=== PATIENT | male | born 1965 | race Caucasian/White ===

== ENCOUNTER → 2017-04-25 | Outpatient (CLI) | payer BC ==
--- NOTE | 2017-04-25 23:35 | MR ---
EXAMINATION TYPE: MR shoulder RT wo con DATE OF EXAM: 04/25/2017 COMPARISON: NONE HISTORY: Right shoulder pain for 10 years, gotten worse TECHNIQUE: Multiplanar, multisequence imaging of the right shoulder is performed without contrast. FINDINGS: There is a small amount of fluid around the biceps tendon. Biceps tendon is intact. Subscapularis ten don is intact. Glenoid jordan appear normal. There is mild spurring at the AC joint. There is no subac romial impingement. I see no fracture nor dislocation. The supraspinatus tendon appears intact. IMPRESSION: Minimal joint fluid consistent with synovitis. No evidence of rotator cuff tear. Hypertrophic osteoar thritis at the AC joint without significant subacromial impingement.
== END | disposition home or self-care (01) ==
LOC: RADMRIMAIN 20:53
PROVIDERS: ATTEND Orthopaedic Surgery
DX: M19.011 Primary osteoarthritis, right shoulder (principal)

== ENCOUNTER → 2017-07-12 | Outpatient (CLI) | payer BC ==
[2017-07-12 09:11] LABS: EKG EKG PERFORMED
[2017-07-12 09:29] LABS: Basophils # (A) 0.1 k/uL (0-0.2); Basophils % (A) 1 %; CH 32.3; CHCM 34.6; Eosinophils # (A) 0.3 k/uL (0-0.7); Eosinophils % (A) 2 %; HCT 49.2 % (39.0-53.0); HDW 2.57; HGB 16.4 gm/dL (13.0-17.5); Luc # (Auto) 0.25; Luc % (Auto) 2; Lymphocytes # (A) 2.6 k/uL (1.0-4.8); Lymphocytes % (A) 20 %; MCH 31.3 pg (25.0-35.0); MCHC 33.3 g/dL (31.0-37.0); MCV 94.1 fL (80.0-100.0); Mean Platelet Volume 7.5; Monocytes # (A) 0.8 k/uL (0-1.0); Monocytes % (A) 6 %; Neutrophils # (A) 8.9 k/uL (1.3-7.7); Neutrophils % (A) 69 %; RBC 5.23 m/uL (4.30-5.90); RDW 14.2 % (11.5-15.5); WBC 12.9 k/uL (3.8-10.6); WBC (Perox) 13.29
[2017-07-12 09:50] LABS: Anion Gap 10 mmol/L; Carbon Dioxide 26 mmol/L (22-30); Chloride 105 mmol/L (98-107); Potassium 4.2 mmol/L (3.5-5.1); Sodium 141 mmol/L (137-145)
== END | disposition home or self-care (01) ==
LOC: LABPAT 09:03
PROVIDERS: ATTEND Orthopaedic Surgery
DX: Z01.810 Encounter for preprocedural cardiovascular examination (principal); Z01.812 Encounter for preprocedural laboratory examination; M75.41 Impingement syndrome of right shoulder
CPT/HCPCS: 80051; 85025; 93005

== ENCOUNTER 2017-08-01 08:19 | Day surgery (SDC) | payer BC ==
[2017-07-27 15:11] VITALS: BMI 23.7
--- NOTE | 2017-07-31 15:30 | HP ---
HISTORY AND PHYSICAL DATE OF SERVICE: 08/01/2017 Benito Whitman is a 52-year-old patient seen with progressive right shoulder pain. After treatment options discussed, he elected to proceed with right shoulder arthroscopy. Consent was obtained. PAST MEDICAL HISTORY: Noncontributory. PAST SURGICAL HISTORY: Noncontributory. DAILY MEDICATIONS: Ibuprofen as needed. ALLERGIES: None reported. SOCIAL HISTORY: Patient currently smokes cigarettes. PHYSICAL EVALUATION OF THE RIGHT SHOULDER: Flexion is 150 degrees, abduction is 140 degrees, external rotation is 50 degrees with pain and weakness. There is tenderness on the anterolateral acromion and rotator cuff insertion site. Impingement positive at 90 degrees. Cross adduction sign is positive. Distal neurovascular exam is intact. RIGHT SHOULDER RADIOGRAPHS: Reveal a type 2 anterior acromion, cystic changes of the tuberosity. An MRI of the right shoulder revealed acromioclavicular joint osteoarthritis. IMPRESSION: Right shoulder impingement with possible rotator cuff tear and acromioclavicular joint osteoarthritis. PLAN: Right shoulder arthroscopy with subacromial decompression, possible arthroscopic rotator cuff repair. Probable Keya procedure, possible biceps tenotomy and debridement. MMODL / IJN: [id number] /
[~2017-08-01 08:19] MED LIST: DEXAMETHASONE SOD PHOSPHATE 10 MG/ML 1 ML VIAL IV ONE; HYDROmorphone 0.5 MG/0.5 ML SYRINGE IVP PRN; LACTATED RINGERS 1,000 ML IV SCH; LIDOCAINE 1% 20 ML VIAL (10MG/ML) FOR IV START INTRADERMA PRN; MIDAZOLAM 2 MG/2 ML VIAL IV PRN; ONDANSETRON 4 MG/2 ML VIAL IVP ONE; SCOPOLAMINE 1.5MG/72HR PATCH TRANSDERM ONE; ceFAZolin 2 GM in SODIUM CHLORIDE 0.9% 100 ML IVPB ONE; fentaNYL (PF) 50 MCG/ML 2 ML AMP IVP PRN
[2017-08-01] MEDS ORDERED: ROCURONIUM BROMIDE 10 MG/ML 10 ML VIAL IV ONE (10:18)
[2017-08-01] MEDS ORDERED: MIDAZOLAM 2 MG/2 ML VIAL ONE (10:18)
[2017-08-01] MEDS ORDERED: PROPOFOL 10 MG/ML 20 ML VIAL IV ONE (10:18)
[2017-08-01] MEDS ORDERED: SUCCINYLCHOLINE CHLORIDE 100 MG/5 ML SYR IV ONE (10:18)
[2017-08-01] MEDS ORDERED: LIDOCAINE 2%-EPI 1:100,000 20 ML VIAL ONE (10:18)
[2017-08-01] MEDS ORDERED: HYDROmorphone (PF) 1 MG/ML ONE (10:18)
[2017-08-01] MEDS ORDERED: NEOSTIGMINE 1 MG/ML 10 ML VIAL ONE (10:18)
[2017-08-01] MEDS ORDERED: ROPIVACAINE 5 MG/ML 30 ML VIAL ONE (10:18)
[2017-08-01] MEDS ORDERED: GLYCOPYRROLATE 0.2 MG/ML 2 ML VIAL ONE (10:18)
[2017-08-01] MEDS ORDERED: LACTATED RINGERS 1,000 ML IV ONE (11:14)
[2017-08-01 12:18] VITALS: TEMP 97.2
--- NOTE | 2017-08-01 12:19 | P.OP ---
Date of Procedure: 08/01/17 Preoperative Diagnosis: Right shoulder impingement Postoperative Diagnosis: 1. Right shoulder rotator cuff tear 2. Right shoulder impingement 3. Right shoulder acromioclavicular joint osteoarthritis 4. Right shoulder partial long head biceps tendon tear 5. Right shoulder superficial superior labral tear 6. Right shoulder glenoid fossa osteochondral tear Procedure(s) Performed: 1. Right shoulder arthroscopic rotator cuff repair 2. Right shoulder arthroscopic subacromial decompression 3. Right shoulder arthroscopic Keya procedure 4. Right shoulder arthroscopic biceps tenotomy 5. Right shoulder arthroscopic debridement labral tear 6. Right shoulder arthroscopic chondroplasty glenoid fossa Implants: None Anesthesia: GETA, regional (Interscalene block) Surgeon: Satnam Schaeffer Steam Pressure Chamber Operator #1: Rafael Buchanan Estimated Blood Loss (ml): 10 Pathology: none sent Condition: stable Disposition: PACU Indications for Procedure: 52-year-old patient seen with progressive right shoulder pain. After treatment options were discussed, he elected to proceed with arthroscopy. Operative Findings: See description of procedure Description of Procedure: Patient underwent a shoulder block by department of anesthesia. The patient was then taken to the operative suite. The patient underwent a general anesthetic by the department of anesthesia. The patient was placed into a lateral position and secured. There was appropriate padding of the bony prominence. Right shoulder was then prepped and draped in normal sterile orthopedic fashion. We placed the extremity in 10 pounds of longitudinal traction. A posterior incision was now made for a posterior working portal site. The trocar and cannula were inserted into the glenohumeral joint. Arthroscopy was initiated. Spinal needle was now inserted anteriorly, to ascertain the anterior working portal site. An incision was now made in that area, a trocar was inserted followed by a probe. There was superficial tearing of the superior labrum. Partial tearing and hyperemia long head biceps tendon. The posterior and inferior labrum appeared intact. There was an area in the inferior portion of the glenoid fossa with an osteochondral tear present. There were some diffuse grade 1-2, she changes around that osteochondral tear. The humeral head was stable with early grade 1 chondromalacia. At this point performed a chondroplasty of the glenoid fossa getting down to stable osteochondral tissue. I debrided the superior labral tear down to stable tissue. I performed an arthroscopic biceps tenotomy. The residual labrum was probed and found to be stable. The residual osteochondral surface along that osteochondral tear was stable there was a area of full-thickness defect of the glenoid fossa that measured about 5 mm x 5 mm. At this point instruments removed from the glenohumeral joint. Utilizing the posterior working portal site, the trocar and cannula were inserted into the subacromial space. Arthroscopy initiated. I made an incision 2 fingerbreadths lateral to the acromion. I introduced my trocar followed by my ArthroCare ablator. I now began ablating thick subacromial bursal tissue, which exposed the undersurface of the anterior acromion. This was diminished subacromial space. There was a very prominent anterior acromion. A motorized bur was introduced and a subacromial decompression was performed. I also excised some osteophytes off the inferior aspect of the distal clavicle. The AC joint was visualized and noted to be fairly arthritic. Our motorized bur was introduced in the anterior portal site and a Keya procedure was performed without difficulty, decompressing the AC joint nicely. I turned my attention to the rotator cuff. There appeared to be an area of redundant rotator cuff tendon tissue along the midportion of the supraspinatus. Upon further probing there was an intrasubstance tear there. I debrided the margins with a motorized shaver. The tear measured approximately 1.5 cm. I repaired the intrasubstance tear with 2 simple interrupted sutures which approximated the tear nicely. The suture limbs were clipped. The repair was probed and found to be stable. I injected 1 mL Allogen intra-articular. Instruments now removed from the portal sites. All portal sites were approximated with nylon suture. Sterile dressings were applied followed by a shoulder immobilizer. Devon OCONNOR assisted with the procedure. The patient was awakened, transferred to a bed, and taken to recovery in stable condition.
[2017-08-01 12:38] VITALS: RESP 18
--- NOTE | 2017-08-01 13:08 | P.ONQ ---
Anesthesiology Proc Note - PNB - Peripheral Nerve Block Performed Right Interscalene Single Time Out Performed: Yes Procedure Start Time: :10 Procedure Stop Time: :15 Indication: Acute Post-Operative Pain, Requested by physician Sedation Type: Sedate with meaningful contact maintained Preparation: Sterile Prep Position: Supine Needle Size: 50mm (2") Needle Gauge: 21 Technique: Ultrasound Injectate: 0.5% Ropivacaine (see comment for volume) (Ropivacaine 0.5% 15ml + Lidocaine 2% with epi 15 ml) Blood Aspirated: No Pain Paresthesia on Injection Noted: No Resistance on Injection: Normal Events: Uneventful and Well Tolerated
[2017-08-01 13:12] VITALS: BP 134/79; PULSE 76
== END 2017-08-01 14:03 | disposition home or self-care (01) ==
LOC: OR 08:19
PROVIDERS: ATTEND Orthopaedic Surgery
DX: M75.101 Unspecified rotator cuff tear or rupture of right shoulder, not specified as traumatic (principal); M75.41 Impingement syndrome of right shoulder; M25.711 Osteophyte, right shoulder; M94.211 Chondromalacia, right shoulder; M19.011 Primary osteoarthritis, right shoulder; S46.111A Strain of muscle, fascia and tendon of long head of biceps, right arm, initial encounter; S43.491A Other sprain of right shoulder joint, initial encounter; X58.XXXA Exposure to other specified factors, initial encounter; F17.210 Nicotine dependence, cigarettes, uncomplicated
CPT/HCPCS: 29826; 29827; 29824; 64415; C1765; J2250; J1100; J2710; J0690; J2405; J3010; J1170; J2795; J0330; J2704

== ENCOUNTER → 2018-06-26 | Outpatient (CLI) | payer BC ==
--- NOTE | 2018-06-26 22:32 | MR ---
EXAMINATION TYPE: MR lumbar spine wo con DATE OF EXAM: 06/26/2018 COMPARISON: None HISTORY: Low back pain TECHNIQUE: Multiplanar, multisequence images of the lumbar spine were acquired. L1-L2: Normal disc appearance without desiccation. No herniation, protrusion or disc bulging. No ca nal stenosis is present. Foramina are patent bilaterally. L2-L3: Normal disc appearance without desiccation. No herniation, protrusion or disc bulging. No ca nal stenosis is present. Foramina are patent bilaterally. L3-L4: Posterior broad-based disc bulge causes mild anterior mass effect on the thecal sac. L4-L5: Posterior broad-based disc bulge causes mild anterior mass effect on the thecal sac, no signif icant central stenosis. Increased signal at the posterior aspect of this is compatible with annular t ear. Circumferential extension of endplate disc complex results in some foraminal encroachment greate r on the left than on the right. There is facet arthropathy with hypertrophy ligamentum flavum causin g some mass effect posterior laterally on the thecal sac. L5-S1: Posterior extension of endplate disc complex contacts the anterior thecal sac, there is no sig nificant spinal stenosis. Circumferential extension of endplate disc complex results in bilateral for aminal encroachment. There is facet arthropathy. Lumbar segments are intact. No paraspinal masses are identified. Conus medullaris has a normal appe arance. Lumbar vertebral bodies show preserved height and alignment. There is endplate discogenic mar row signal change, spondylosis with associated loss of disc height and signal at L5-S1 greater than L 4-5, vacuum phenomenon present at L5-S1. There is a mild spinal curvature. IMPRESSION: Degenerative disc disease, foraminal encroachment, facet arthropathy. Additional findings above.
== END | disposition home or self-care (01) ==
LOC: RADMRIMAIN 20:32
PROVIDERS: ATTEND Internal Medicine
DX: M51.26 Other intervertebral disc displacement, lumbar region (principal); M51.36 Other intervertebral disc degeneration, lumbar region; M47.816 Spondylosis without myelopathy or radiculopathy, lumbar region; M46.96 Unspecified inflammatory spondylopathy, lumbar region; M43.8X6 Other specified deforming dorsopathies, lumbar region; M24.28 Disorder of ligament, vertebrae
CPT/HCPCS: 72148

== ENCOUNTER 2021-11-24 00:09 | Inpatient (IN) | payer BC, MEDICARE ==
[2021-11-24] MEDS ORDERED: ASPIRIN 81 MG PO STA (00:33)
[2021-11-24] MEDS ORDERED: HEPARIN SODIUM 1,000 UN/ML (10ML VL) IV ONE ×2 (00:33→01:21)
[2021-11-24] MEDS: NITROGLYCERIN SL TABS 0.4 MG TAB SUBLINGUAL PRN ×2 (00:40→00:45)
[2021-11-24 00:41] LABS: Basophils # (A) 0.1 k/uL (0-0.2); Basophils % (A) 1 %; Eosinophils # (A) 0.6 k/uL (0-0.7); Eosinophils % (A) 3 %; HCT 46.9 % (39.0-53.0); HGB 15.9 gm/dL (13.0-17.5); Lymphocytes # (A) 4.1 k/uL (1.0-4.8); Lymphocytes % (A) 22 %; MCH 31.9 pg (25.0-35.0); MCHC 33.9 g/dL (31.0-37.0); Mean Platelet Volume 7.5; Monocytes # (A) 1.1 k/uL (0-1.0); Monocytes % (A) 6 %; Neutrophils # (A) 12.2 k/uL (1.3-7.7); Neutrophils % (A) 66 %; Platelet Count 398 k/uL (150-450); RBC 4.99 m/uL (4.30-5.90); RDW 13.2 % (11.5-15.5); WBC 18.4 k/uL (3.8-10.6)
[2021-11-24] MEDS: HEPARIN SOD,PORK IN 0.45% NACL 25,000 UNIT in 0.45% NACL 1 250ML.BAG IV SCH (00:42)
[2021-11-24] MEDS ORDERED: ATORVASTATIN 80 MG TAB PO STA (00:42)
[2021-11-24 00:53] LABS: ALT 20 U/L (4-49); AST 27 U/L (17-59); African American GFR (CKD) >90 (>60 ml/min/1.73 sqM); Albumin 4.1 g/dL (3.5-5.0); Alkaline Phosphatase 71 U/L (38-126); Anion Gap 9 mmol/L; Blood Urea Nitrogen 11 mg/dL (9-20); Calcium 9.6 mg/dL (8.4-10.2); Carbon Dioxide 24 mmol/L (22-30); Chloride 103 mmol/L (98-107); Glucose 159 mg/dL (74-99); Non-African American GFR(CKD) 83 (>60 ml/min/1.73 sqM); Potassium 3.5 mmol/L (3.5-5.1); Sodium 136 mmol/L (137-145); Total Bilirubin 0.5 mg/dL (0.2-1.3)
[2021-11-24 00:59] LABS: INR 0.9 (<1.2); Prothrombin Time 10.4 sec (9.0-12.0)
--- NOTE | 2021-11-24 01:00 | XR ---
EXAMINATION TYPE: XR chest 1V portable DATE OF EXAM: 11/24/2021 COMPARISON: 08/24/2010 HISTORY: Chest pain TECHNIQUE: FINDINGS: Heart and mediastinum are normal. Lungs are clear of infiltrate. There is no heart failure. There are chest leads. Costophrenic angles are clear. IMPRESSION: No active cardiopulmonary disease. No change.
[2021-11-24] MEDS ORDERED: HEPARIN SODIUM 1,000 UN/ML (10ML VL) ONE (01:08)
[2021-11-24] MEDS ORDERED: VERAPAMIL 2.5 MG/ML 2 ML AMP ONE (01:08)
[2021-11-24] MEDS ORDERED: MIDAZOLAM 2 MG/2 ML VIAL IV ONE (01:16)
[2021-11-24] MEDS ORDERED: IV FLUID CONTINUATION 400 ML IV ONE (01:18)
[2021-11-24] MEDS ORDERED: LIDOCAINE 1% INJ 10MG/ML (20 ML MDV) SQ ONE (01:18)
[2021-11-24] MEDS ORDERED: PRASUGREL 10 MG TAB ONE (01:25)
[2021-11-24] MEDS ORDERED: PRASUGREL 10 MG TAB PO ONE (01:29)
[2021-11-24] MEDS ORDERED: MORPHINE SULFATE 4 MG/ML SYRINGE ONE (01:32)
[2021-11-24] MEDS ORDERED: MORPHINE SULFATE 4 MG/ML SYRINGE IV ONE (01:35)
--- NOTE | 2021-11-24 01:44 | ED ---
Chest Pain HPI - General Chief Complaint: Chest Pain Stated Complaint: Chest Pain Time Seen by Provider: 11/24/21 00:29 Source: patient Mode of arrival: ambulatory Limitations: no limitations - History of Present Illness Initial Comments: This patient's 56-year-old man who presents with complaint of upper chest pain going back approximately one week. He states that he feels to him like indigestion. He presents tonight because she was preparing dinner and passed out. Patient states that he is having some nausea. MD Complaint: chest pain Onset/Timin -: week(s) Onset: during rest Pain Location: left chest Pain Radiation: none Severity: moderate Quality: other (Like indigestion) Consistency: constant Improves With: nothing Worsens With: nothing Other Symptoms: other (Syncope) - Related Data Home Medications Medication Instructions Recorded Confirmed Ibuprofen [Motrin] 400 mg PO Q6HR PRN 07/27/17 07/27/17 Multivit-Min/FA/Lycopen/Lutein 1 each PO DAILY 07/27/17 07/27/17 [Centrum Silver Tablet] Ubidecarenone [Co Q-10] 100 mg PO DAILY 07/27/17 07/27/17 Previous Rx's Medication Instructions Recorded HYDROcodone/APAP 7.5-325MG [[place] 1 each PO Q6HR PRN #20 tab 08/01/17 7.5] Allergies Allergy/AdvReac Type Severity Reaction Status Date / Time No Known Allergies Allergy Verified 11/24/21 00:21 Review of Systems ROS Statement: Those systems with pertinent positive or pertinent negative responses have been documented in the HPI. ROS Other: All systems not noted in ROS Statement are negative. Constitutional: Denies: fever Respiratory: Denies: cough, dyspnea Cardiovascular: Reports: chest pain, syncope. Denies: palpitations, orthopnea, edema Gastrointestinal: Reports: nausea. Denies: abdominal pain, vomiting, diarrhea, melena, hematochezia Genitourinary: Denies: dysuria, hematuria Musculoskeletal: Denies: back pain Skin: Denies: rash Neurological: Denies: headache, weakness, numbness EKG Findings - EKG Results: EKG: sinus rhythm (Rate 69 BPM) - Blocks, [place], Hypertrophy, ST Abn: QRS axis and voltage: left axis deviation (-30 to -90) - AL, Pacemaker, Normal: Myocardial infarction: anterior AL (acute or recent), lateral AL (acute or recent) Past Medical History Past Medical History: Musculoskeletal Disorder Additional Past Medical History / Comment(s): RT SHOULDER IMPINGEMENT, OLD INJURY. History of Any Multi-Drug Resistant Organisms: None Reported Past Surgical History: No Surgical Hx Reported Additional Past Anesthesia/Blood Transfusion Reaction / Comment(s): ONLY LOCALS, NO PROBLEM Past Psychological History: No Psychological Hx Reported Smoking Status: Former smoker Past Alcohol Use History: Occasional Past Drug Use History: None Reported - Past Family History Mother Family Medical History: No Reported History General Exam Limitations: no limitations General appearance: alert, in distress Head exam: Present: atraumatic, normocephalic Eye exam: Present: normal appearance. Absent: scleral icterus, conjunctival injection ENT exam: Present: mucous membranes dry Neck exam: Present: normal inspection, full ROM. Absent: tenderness Respiratory exam: Present: normal lung sounds bilaterally. Absent: respiratory distress, wheezes, rales, rhonchi, stridor Cardiovascular Exam: Present: regular rate, normal rhythm, normal heart sounds. Absent: systolic murmur, diastolic murmur, rubs, gallop GI/Abdominal exam: Present: soft. Absent: distended, tenderness, guarding, rebound, rigid Extremities exam: Present: normal inspection, normal capillary refill. Absent: pedal edema, calf tenderness Back exam: Present: normal inspection Neurological exam: Present: alert Skin exam: Present: warm, intact, diaphoretic, mottled. Absent: rash Course Vital Signs 11/24/21 11/24/21 11/24/21 00:17 00:30 00:39 Temperature 97.1 F L Pulse Rate 76 69 74 Respiratory 22 18 20 Rate Blood Pressure 117/68 114/77 126/82 O2 Sat by Pulse 99 98 99 Oximetry 11/24/21 11/24/21 11/24/21 00:45 00:49 00:56 Temperature Pulse Rate 76 68 70 Respiratory 20 20 22 Rate Blood Pressure 128/81 89/56 68/45 O2 Sat by Pulse 98 98 97 Oximetry 11/24/21 11/24/21 01:00 01:01 Temperature Pulse Rate 70 70 Respiratory 20 18 Rate Blood Pressure 109/67 116/78 O2 Sat by Pulse 98 99 Oximetry Procedures - [place] Protocol (Time Out) Patient Identification (2 identifiers required): Chart, Verbal, Arm Band, Name, Birthdate Patient/Legal Machine Plug Shaper has Confirmed: Identity, Procedure, Consent Site Marked: Not Applicable Chest Pain MDM - MDM This patient is a 56-year-old man presenting with chest pain going back 1 week and syncopal episode tonight. He is registering and when he has another syncopal episode was brought directly to the station room. There EKG is performed which does confirm STEMI and the labor specialist was activated and I discussed case with cardiology. Critical Care Time Critical Care Time: Yes (30 minutes) Disposition Clinical Impression: ST elevation myocardial infarction (STEMI) Disposition: ADMITTED IP TO THIS HOSP Condition: Critical Is patient prescribed a controlled substance at d/c from ED?: No Referrals: Lola Juan MD [Primary Care Provider] - 1-2 days
[2021-11-24] MEDS ORDERED: IOPAMIDOL-370 125ML BTL INJ ONE (01:49)
[2021-11-24] MEDS ORDERED: IOPAMIDOL-370 100ML BTL INJ ONE (01:57)
[2021-11-24] MEDS ORDERED: RX INFO: IV CONTRAST WAS GIVEN 1 EACH MISC MISCELLANE PRN (02:06)
[2021-11-24] MEDS ORDERED: NITROGLYCERIN SL TABS 0.4 MG TAB SUBLINGUAL PRN (02:06)
[2021-11-24] MEDS ORDERED: ATROPINE SULFATE 0.1 MG/ML 10ML SYRINGE IV PRN (02:06)
[2021-11-24] MEDS ORDERED: MAG HYDROX/AL HYDROX/SIMETH 30 ML CUP PO PRN (02:06)
[2021-11-24] MEDS ORDERED: ZOLPIDEM 5 MG TAB PO PRN (02:06)
[2021-11-24] MEDS ORDERED: SODIUM CHLORIDE 0.9% 1,000 ML in EMPTY BAG 1 BAG IV SCH (02:15)
[2021-11-24 02:19] LABS: Glucose,Whole Blood 135 mg/dL (75-99)
--- NOTE | 2021-11-24 02:21 | P.PCN ---
Date of Procedure: 11/24/21 Operative Findings: CARDIAC CATHETERIZATION AND PERCUTANEOUS CORONARY INTERVENTION PERFORMING PHYSICIAN: Andrei Olivier MD, VI PROCEDURE PERFORMED: 1. Selective right and left coronary angiogram 2. Left heart catheterization 3. Successful stenting of the proximal left anterior descending artery using 2.75 x 15 mm Xience IVONE which was postdilated using 3 mm NC balloon with an excellent angiographic results and reduction of stenosis from 100% to 0% 4. Selective right common femoral artery angiogram INDICATION: This is a pleasant 56-year-old gentleman with history of smoking as well as significant family history of coronary artery disease was brought to the emergency department by ambulance for chest discomfort EKG concerning of acute anterior ST patient myocardial infarction. In the light of that an emergent heart catheterization was advised DOOR TO BALLOON: 78 minutes COMPLICATION: Not APPROACH: Right common femoral artery LEVEL OF SEDATION: Moderate with the sedation time off 37 minutes PROCEDURE DESCRIPTION: After obtaining an informed consent, the patient was brought to cardiac slab installer. Local anesthesia was performed using lidocaine subcutaneously. The right common femoral artery was cannulated using Seldinger technique, the guidewire passed easily, following that we advanced a 6 [place] sheath dilator assembly, the wire and dilator were removed and sheath was flushed. Selective left coronary angiogram was performed using JL4 guiding catheter. Selective right coronary angiogram was performed using JR4 diagnostic catheter. Left heart catheterization was performed using the JR4 catheter which cross aortic valve then we did pulled back across the valve. After that we did intervene on the left anterior descending artery The procedure was completed there was no complication. SELECTIVE CORONARY ANGIOGRAM: The right coronary artery: Is a large caliber vessel and on dominant vessel. The proximal and mid RCA has mild disease only. The RCA distally just before the bifurcation into PDA and PLV branches has a plaque appears to be in the range of 80% extends into the PDA branch of the RCA. The PLV has mild to moderate disease only. Left main: Has mild disease only. Bifurcates into left circumflex and left anterior descending artery The left circumflex: Is a large caliber vessel and nondominant dominant vessel. The proximal left circumflex has mild disease only. It gives rises into the first obtuse marginal branch which is a large caliber vessel. It bifurcates into 2 subbranches. The upper subbranch appears to have mild disease only and the lower subbranch appears to have a lesion in the range of 60%. The distal left circumflex is angiographically normal and gives rises into a second OM branch which appears to have mild disease only. The left anterior descending artery: The LAD is occluded in the proximal to midportion. HEMODYNAMICS: The LVEDP was about 20 mmHg without significant gradient across aortic valve PCI OF THE LAD: Anticoagulation was initiated using heparin with continuous ACT monitoring. Subsequently I did engage the left main using JL4 guiding catheter. I did wire the LAD and cross the lesion using a run-through wire. After that balloon james oplasty was performed using 2.5 x 12 mm balloon. The balloon was inflated under 12 bimal for 20 seconds. Subsequently I deployed 2.75 x 15 mm stent where the stent was positioned under fluoroscopy guidance and deployed under 12 bimal. The stent was postdilated using 3 mm NC balloon. The following angiogram showed excellent angiographic results and the procedure was completed without any complication CONCLUSION: 1. Acute anterior ST elevation myocardial infarction 2. 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 I performed successful stenting of the LAD with an excellent angiographic results 3. Intermediate disease involving the left circumflex coronary system 4. Severe disease involving the distal right coronary artery 5. Elevated left-sided filling pressure POSTPROCEDURE MANAGEMENT: #1 dual antiplatelet therapy #2 aggressive cholesterol control #3 obtain an echo to assess ejection fraction #4 follow-up with the patient
--- NOTE | 2021-11-24 02:24 | P.CRDCN ---
History of Present Illness Consult date: 11/24/21 Chief complaint: Chest pain History of present illness: This is a 56-year-old gentleman with history of smoking as well as significant family history of coronary disease presented to the emergency department complaining of chest discomfort. As a matter of fact he was brought by ambulance. The patient has been experiencing intermittent episodes of chest discomfort for about a week. Initially discomfort was only intermittent and only with exertion. He described the discomfort as a burning sensation in the middle of the chest. No associated symptoms. The discomfort was not radiating. Today he developed more intense discomfort in the chest and for that reason he decided to come to the hospital. Ambulance was called. The EKG revealed sinus rhythm with anterior ST patient myocardial infarction. In the light of that an emergent heart catheterization was advised and reviewed acute total occlusion of the proximal left anterior descending artery. I did intervene on the LAD and I placed stent in the proximal LAD with a good angiographic results and without any complication from right groin approach. He was also found to have severe disease involving the distal right coronary artery and also intermediate disease involving the left circumflex coronary artery. The patient also was found to have elevated left-sided filling pressure. He tolerated the procedure very well. He will be admitted to the intensive. For the next 24-48 hours. Will be on dual antiplatelet therapy along with high intensity statin. Past Medical History Past Medical History: Musculoskeletal Disorder Additional Past Medical History / Comment(s): RT SHOULDER IMPINGEMENT, OLD INJURY. History of Any Multi-Drug Resistant Organisms: None Reported Past Surgical History: No Surgical Hx Reported Additional Past Anesthesia/Blood Transfusion Reaction / Comment(s): ONLY LOCALS, NO PROBLEM Past Psychological History: No Psychological Hx Reported Smoking Status: Former smoker Past Alcohol Use History: Occasional Past Drug Use History: None Reported - Past Family History Mother Family Medical History: No Reported History Medications and Allergies Home Medications Medication Instructions Recorded Confirmed Type Ibuprofen [Motrin] 400 mg PO Q6HR PRN 07/27/17 07/27/17 History Multivit-Min/FA/Lycopen/Lutein 1 each PO DAILY 07/27/17 07/27/17 History [Centrum Silver Tablet] Ubidecarenone [Co Q-10] 100 mg PO DAILY 07/27/17 07/27/17 History HYDROcodone/APAP 7.5-325MG [[place] 1 each PO Q6HR PRN #20 tab 08/01/17 Rx 7.5] Allergies Allergy/AdvReac Type Severity Reaction Status Date / Time No Known Allergies Allergy Verified 11/24/21 00:21 Physical Exam Vitals: Vital Signs Temp Pulse Resp BP Pulse Ox 11/24/21 01:01 70 18 116/78 99 11/24/21 01:00 70 20 109/67 98 11/24/21 00:56 70 22 68/45 97 11/24/21 00:49 68 20 89/56 98 11/24/21 00:45 76 20 128/81 98 11/24/21 00:39 74 20 126/82 99 11/24/21 00:30 69 18 114/77 98 11/24/21 00:17 97.1 F L 76 22 117/68 99 Intake and Output 11/23/21 11/23/21 11/24/21 14:59 22:59 06:59 Intake Total 300 Balance 300 Intake: IV 300 Other: Weight 81.647 kg - Constitutional General appearance: no acute distress - Respiratory Respiratory: bilateral: diminished - Cardiovascular Rhythm: regular Heart sounds: normal: S1, S2 Abnormal Heart Sounds: systolic murmur Results 11/24/21 00:30 11/24/21 00:30 Cardiac Enzymes 11/24/21 11/24/21 Range/Units 00:30 00:30 AST 27 (17-59) U/L Troponin I 0.299 H* (0.000-0.034) ng/mL Coagulation 11/24/21 Range/Units 00:30 PT 10.4 (9.0-12.0) sec APTT 23.0 (22.0-30.0) sec CBC 11/24/21 Range/Units 00:30 WBC 18.4 H (3.8-10.6) k/uL RBC 4.99 (4.30-5.90) m/uL Hgb 15.9 (13.0-17.5) gm/dL Hct 46.9 (39.0-53.0) % Plt Count 398 (150-450) k/uL Comprehensive Metabolic Panel 11/24/21 Range/Units 00:30 Sodium 136 L (137-145) mmol/L Potassium 3.5 (3.5-5.1) mmol/L Chloride 103 (98-107) mmol/L Carbon Dioxide 24 (22-30) mmol/L BUN 11 (9-20) mg/dL Creatinine 1.00 (0.66-1.25) mg/dL Glucose 159 H (74-99) mg/dL Calcium 9.6 (8.4-10.2) mg/dL AST 27 (17-59) U/L ALT 20 (4-49) U/L Alkaline Phosphatase 71 (38-126) U/L Total Protein 7.0 (6.3-8.2) g/dL Albumin 4.1 (3.5-5.0) g/dL Current Medications Generic Name Dose Route Start Last Admin Trade Name Freq PRN Reason Stop Dose Admin Al Hydroxide/Mg Hydroxide 30 ml 11/24/21 02:06 Mag Hydrox/Al Hydrox/Simeth 30 Ml Cup PO Q4HR PRN Heartburn Aspirin 81 mg 11/24/21 09:00 Aspirin 81 Mg PO DAILY [facility] Atorvastatin Calcium 80 mg 11/24/21 21:00 Atorvastatin 80 Mg Tab PO HS [facility] Atropine Sulfate 0.5 mg 11/24/21 02:06 Atropine Sulfate 0.1 Mg/Ml 10ml Syringe IV ONCE PRN Symptomatic Bradycardia Heparin Sodium/Sodium Chloride 250 mls @ 9.798 mls/hr 11/24/21 00:45 11/24/21 00:42 25,000 unit/ Sodium Chloride IV 12 units/kg/hr .Q24H [facility] 9.798 mls/hr Administration Protocol 12 UNITS/KG/HR Sodium Chloride 1,000 ml/ IV 1,000 mls @ 75 mls/hr 11/24/21 02:15 Solution IV 11/24/21 07:16 .[id number] [facility] Metoprolol Succinate 12.5 mg 11/24/21 09:00 Metoprolol Succinate (Er) 25 Mg Tab.Er.24h PO DAILY [facility] Miscellaneous Information 1 each 11/24/21 02:06 Rx Info: Iv Contrast Was Given 1 Each Misc MISCELLANE 11/26/21 02:06 DAILY PRN Per Protocol Nitroglycerin 0.4 mg 11/24/21 02:06 Nitroglycerin Sl Tabs 0.4 Mg Tab SUBLINGUAL Q5M PRN Chest Pain Prasugrel 10 mg 11/25/21 09:00 Prasugrel 10 Mg Tab PO DAILY [facility] Protocol Zolpidem Tartrate 5 mg 11/24/21 02:06 Zolpidem 5 Mg Tab PO HS PRN Insomnia Intake and Output 11/23/21 11/23/21 11/24/21 14:59 22:59 06:59 Intake Total 300 Balance 300 Intake: IV 300 Other: Weight 81.647 kg Patient Weight 11/24/21 06:59 Weight 81.647 kg 11/24/21 00:30 11/24/21 00:30 Assessment and Plan Assessment: Assessment #[address] patient myocardial infarction #2 significant history of smoking Plan #1 the patient underwent successful stenting of the proximal LAD #2 dual antiplatelet therapy #3 aggressive cholesterol control #4 smoking cessation #5 anti-ischemic medication #6 an echocardiogram was Doppler #7 standard groin care #8 follow-up with the patient thank you for allowing us participate in his care and we will continue following up with the patient
[2021-11-24 06:56] LABS: African American GFR (CKD) >90 (>60 ml/min/1.73 sqM); Anion Gap 4 mmol/L; Blood Urea Nitrogen 8 mg/dL (9-20); Calcium 8.8 mg/dL (8.4-10.2); Carbon Dioxide 27 mmol/L (22-30); Chloride 106 mmol/L (98-107); Glucose 116 mg/dL (74-99); Non-African American GFR(CKD) >90 (>60 ml/min/1.73 sqM); Potassium 4.2 mmol/L (3.5-5.1); Sodium 137 mmol/L (137-145)
--- NOTE | 2021-11-24 07:47 | P.PN ---
Subjective Progress Note Date: 11/24/21 Principal diagnosis: Acute coronary syndrome The patient is a 56-year-old gentleman history of smoking who was admitted to the hospital with acute coronary syndrome consistent with acute anterior ST patient myocardial infarction. He underwent an emergent heart catheterization a nd was found to have occluded LAD. He underwent successful stenting of the LAD with a good angiographic results and without any complication from the right femoral approach. The patient was seen this morning. He is asymptomatic. He is in with an IV stable. He is on dual antiplatelet therapy along with high intensity statin anti-ischemic medication. An echocardiogram is in process to be done. Objective - Vital Signs Vital signs: Vital Signs Temp 97 F L 11/24/21 04:00 Pulse 71 11/24/21 06:00 Resp 13 11/24/21 06:00 BP 128/86 11/24/21 06:00 Pulse Ox 98 11/24/21 06:00 Intake & Output 11/23/21 11/24/21 11/24/21 18:59 06:59 18:59 Intake Total 990 Output Total 1600 Balance -610 Weight 90.4 kg Intake: IV 750 Sodium Chloride 0.9% 1, 450 000 ml In Empty Bag 1 bag @ 75 mls/hr IV .[id number] [facility] Rx#:[id number] Oral 240 Output: Urine 1600 Other: Voiding Method Urinal - Constitutional General appearance: Present: no acute distress - Respiratory Respiratory: bilateral: CTA - Cardiovascular Rhythm: regular Heart sounds: normal: S1, S2 - Labs CBC & Chem 7: 11/24/21 00:30 11/24/21 06:06 Labs: Abnormal Lab Results - Last 24 Hours (Table) 11/24/21 11/24/21 11/24/21 Range/Units 00:30 00:30 00:30 WBC 18.4 H (3.8-10.6) k/uL Neutrophils # 12.2 H (1.3-7.7) k/uL Monocytes # 1.1 H (0-1.0) k/uL Sodium 136 L (137-145) mmol/L BUN (9-20) mg/dL Glucose 159 H (74-99) mg/dL POC Glucose (mg/dL) (75-99) mg/dL Troponin I 0.299 H* (0.000-0.034) ng/mL 11/24/21 11/24/21 Range/Units 02:18 06:06 WBC (3.8-10.6) k/uL Neutrophils # (1.3-7.7) k/uL Monocytes # (0-1.0) k/uL Sodium (137-145) mmol/L BUN 8 L (9-20) mg/dL Glucose 116 H (74-99) mg/dL POC Glucose (mg/dL) 135 H (75-99) mg/dL Troponin I (0.000-0.034) ng/mL Assessment and Plan Assessment: Assessment #[address] patient myocardial infarction #2 status post PCI of the LAD #3 severe residual disease involving the RCA #4 significant history of smoking Plan #1 continue the current medical regimen including dual antiplatelet therapy #2 continue high intensity statin and anti-ischemic medication #3 follow-up on the echocardiogram
[2021-11-24] MEDS: ASPIRIN 81 MG PO SCH (09:15)
[2021-11-24] MEDS: METOPROLOL SUCCINATE (ER) 25 MG TAB.ER.24H PO SCH (09:15)
[2021-11-24 13:44] VITALS: BMI 31.1
--- NOTE | 2021-11-24 17:46 | ECHOF ---
Referral Reason:ACS MEASUREMENTS -------- HEIGHT: 170.2 cm WEIGHT: 81.7 kg BP: IVSd: 1.2 cm (0.6 - 1.1) LVIDd: 4.9 cm (3.9 - 5.3) LVPWd: 0.9 cm (0.6 - 1.1) EDV(Teich): 112 ml IVSs: 1.4 cm LVIDs: 2.9 cm LVPWs: 1.7 cm %IVS Thck: 15 % ESV(Teich): 33 ml EF(Teich): 71 % %FS: 40 % SV(Teich): 79 ml LA Diam: 3.5 cm (2.7 - 3.8) RVIDd: 2.8 cm (< 3.3) Ao Diam: 3.0 cm (2.0 - 3.7) LA Diam: 3.7 cm (2.7 - 3.8) AV Cusp: 1.5 cm (1.5 - 2.6) EPSS: 0.4 cm MV E Flako: 0.28 m/s MV DecT: 263 ms MV Dec Noble: 1.1 m/s MV A Flako: 1.10 m/s MV E/A Ratio: 0.25 MV PHT: 76 ms TR Vmax: 1.63 m/s TR maxP.61 mmHg RAP: 5.00 mmHg RVSP: 15.61 mmHg MV EF SLOPE: 107.47 mm/s (70 - 150) MV EXCURSION: 18.39 mm (> 18.000) FINDINGS -------- Sinus rhythm. This was a technically good study. The left ventricular size is normal. There is mild concentric left ventricular hypertrophy. Overa ll left ventricular systolic function is moderate-severely impaired with, an EF between 30 - 35 %. Apical anterior LV wall motion is hypokinetic. Apical lateral LV wall motion is hypokinetic. Ap ical inferior LV wall motion is hypokinetic. Apical septum LV wall motion is hypokinetic. The right ventricle is normal in size. The left atrial size is normal. The right atrial size is normal. There is mild aortic valve sclerosis. There is no evidence of aortic regurgitation. Mild mitral regurgitation is present. Mild tricuspid regurgitation present. Right ventricular systolic pressure is normal at < 35 mmHg. There is no pulmonic regurgitation present. There is no pericardial effusion. CONCLUSIONS -------- 1. The left ventricular size is normal. 2. There is mild concentric left ventricular hypertrophy. 3. Overall left ventricular systolic function is moderate-severely impaired with, an EF between 30 - 35 %. 4. Apical anterior LV wall motion is hypokinetic. 5. Apical lateral LV wall motion is hypokinetic. 6. Apical inferior LV wall motion is hypokinetic. 7. Apical septum LV wall motion is hypokinetic. 8. The right ventricle is normal in size. 9. The left atrial size is normal. 10. The right atrial size is normal. 11. There is mild aortic valve sclerosis. 12. Mild mitral regurgitation is present. 13. Mild tricuspid regurgitation present. 14. There is no pericardial effusion. [employer]ATION[employer] ENG[employer]ER [employer]: Genna Robles RDCS
[2021-11-24] MEDS: ATORVASTATIN 80 MG TAB PO SCH (19:57)
--- NOTE | 2021-11-24 21:25 | P.HPIM ---
History of Present Illness H&P Date: 11/24/21 Chief Complaint: chest pain Patient is a 56-year-old male with known history of smoking and osteoarthritis presents to ER with complaints of chest pain. Apparently patient was preparing dinner and suddenly passed out. EMS was called and patient was brought to the hospital. Patient has been having intermittent chest pain for the past 1 week. Patient felt like heartburn. Pain gets worse when he was shoveling and relieved with rest. Chest pain is mainly in the mid retrosternal. No associated nausea vomiting. No radiation. No associated headache or dizziness or li ghtheadedness. No diaphoresis. Patient denies any complaints of recent illnesses. No leg swelling. EKG showed ST elevated NC in the anterior leads and was taken to emergent cardiac catheterization. Patient underwent stent placement to LAD. Currently patient is being monitored in MICU. Denied any complaints of chest discomfort. Chest x-ray showed no active cardiopulmonary disease. No change. Laboratory showed WBC 18.4 hemoglobin 15.9 platelets 398-3.5 chloride 103 bicarb is 24 BUN 11 and creatinine 1.0 Troponin 0 0.299 Review of Systems Constitutional: Patient denies any fever or chills . No generalized weakness or weight loss. Abdomen: Patient denied nausea vomiting and diarrhea and abdominal pain. Cardiovascular: Patient denies any chest pain or short of breath no palpitations. Respiratory: patient denied any cough or sputum production. No shortness of breath Neurologic: Patient denied any numbness or tingling headache. Musculoskeletal: Patient denies any complaints of joint swelling or deformity. Skin: Negative Psychiatric: Negative Endocrine: No heat or cold intolerance. No recent weight gain. Genitourinary: No dysuria or hematuria. All other 14 point ROS negative except the above Past Medical History Past Medical History: Musculoskeletal Disorder Additional Past Medical History / Comment(s): RT SHOULDER IMPINGEMENT, OLD INJURY. History of Any Multi-Drug Resistant Organisms: None Reported Past Surgical History: No Surgical Hx Reported Additional Past Surgical History / Comment(s): 1 stent LAD Past Anesthesia/Blood Transfusion Reactions: No Reported Reaction Additional Past Anesthesia/Blood Transfusion Reaction / Comment(s): ONLY LOCALS, NO PROBLEM Date of Last Stent Placement:: 11/24/2021 Past Psychological History: No Psychological Hx Reported Smoking Status: Former smoker Past Alcohol Use History: Occasional Past Drug Use History: None Reported - Past Family History Mother Family Medical History: No Reported History Father History Unknown: Yes Family Medical History: Coronary Artery Disease (CAD), Myocardial Infarction (NC) Medications and Allergies Home Medications Medication Instructions Recorded Confirmed Type Multivit-Min/FA/Lycopen/Lutein 1 tab PO DAILY@1700 07/27/17 11/24/21 History [Centrum Silver Tablet] Ubidecarenone [Co Q-10] 100 mg PO BID 07/27/17 11/24/21 History Cranberry Fruit Extract [Cranberry] 500 mg PO DAILY@1200 11/24/21 11/24/21 History Allergies Allergy/AdvReac Type Severity Reaction Status Date / Time No Known Allergies Allergy Verified 11/24/21 07:06 Physical Exam Vitals: Vital Signs Temp Pulse Pulse Resp BP BP Pulse Ox 11/24/21 06:00 71 13 128/86 98 11/24/21 05:00 72 15 128/79 98 11/24/21 04:00 97 F L 76 15 128/86 98 11/24/21 03:00 71 22 98 11/24/21 02:50 78 14 98 11/24/21 02:40 97.6 F 77 8 L 129/77 98 11/24/21 02:30 23 98 11/24/21 02:20 25 H 96 11/24/21 01:15 98 F 76 10 L 129/77 99 11/24/21 01:01 70 18 116/78 99 11/24/21 01:00 70 20 109/67 98 11/24/21 00:56 70 22 68/45 97 11/24/21 00:49 68 20 89/56 98 11/24/21 00:45 76 20 128/81 98 11/24/21 00:39 74 20 126/82 99 11/24/21 00:30 69 18 114/77 98 11/24/21 00:17 97.1 F L 76 22 117/68 99 Intake and Output 11/23/21 11/24/21 11/24/21 22:59 06:59 14:59 Intake Total 990 Output Total 1600 Balance -610 Intake: IV 750 Sodium Chloride 0.9% 1, 450 000 ml In Empty Bag 1 bag @ 75 mls/hr IV .[id number] [facility] Rx#:[id number] Oral 240 Output: Urine 1600 Other: Voiding Method Urinal Weight 90.4 kg PHYSICAL EXAMINATION: Patient is lying in the bed comfortably, no acute distress, awake alert and oriented.. HEENT: Normocephalic. Neck is supple. Pupils reactive. Nostrils clear. Oral cavity is moist. Neck reveals no JVD, carotid bruits, or thyromegaly. CHEST EXAMINATION: Trachea is central. Symmetrical expansion. Lung saleem clear to auscultation and percussion. CARDIAC: Normal S1, S2 with no gallops. No murmurs ABDOMEN: Soft. Bowel sounds normal. No organomegaly. No abdominal bruits. Extremities: reveal no edema. No clubbing or cyanosis Neurologically awake, alert, oriented x3 with well-coordinated movements. No focal deficits noted Skin: No rash or skin lesions. Psychiatric: Cooperative. Nonsuicidal Musculoskeletal: No joint swelling or deformity. Normal range of motion. Results CBC & Chem 7: 11/24/21 00:30 11/24/21 06:06 Labs: Abnormal Lab Results - Last 24 Hours (Table) 11/24/21 11/24/21 11/24/21 Range/Units 00:30 00:30 00:30 WBC 18.4 H (3.8-10.6) k/uL Neutrophils # 12.2 H (1.3-7.7) k/uL Monocytes # 1.1 H (0-1.0) k/uL Sodium 136 L (137-145) mmol/L BUN (9-20) mg/dL Glucose 159 H (74-99) mg/dL POC Glucose (mg/dL) (75-99) mg/dL Troponin I 0.299 H* (0.000-0.034) ng/mL 11/24/21 11/24/21 Range/Units 02:18 06:06 WBC (3.8-10.6) k/uL Neutrophils # (1.3-7.7) k/uL Monocytes # (0-1.0) k/uL Sodium (137-145) mmol/L BUN 8 L (9-20) mg/dL Glucose 116 H (74-99) mg/dL POC Glucose (mg/dL) 135 H (75-99) mg/dL Troponin I (0.000-0.034) ng/mL Thrombosis Risk Factor Assmnt - DVT/VTE Prophylaxis DVT/VTE Prophylaxis: Pharmacologic Prophylaxis ordered - Choose All That Apply Any of the Below Risk Factors Present?: Yes Each Factor Represents 1 point: Acute NC, Age 41-60 years Other Risk Factors: No Thrombosis Risk Factor Assessment Total Risk Factor Score: 2 Thrombosis Risk Factor Assessment Level: Low Risk Assessment and Plan Assessment: Acute anterior wall NC status post stent placement to LAD. History of smoking and cutting down to 2 cigarettes/day. Family history of coronary artery disease in his father.. Leukocytosis likely reactive. DVT prophylaxis. Plan: Patient is status post cardiac catheterization and stent placement to LAD. Patient will be continued dual antiplatelet therapy with aspirin and prasugrel. Continue with statins and metoprolol.. Telemetry monitoring. Follow-up 2D echocardiogram. Cardiology is on board. Smoking cessation has been counseled. Time with Patient: Greater than 30
[2021-11-25] MEDS: HEPARIN SOD,PORK IN 0.45% NACL 25,000 UNIT in 0.45% NACL 1 250ML.BAG IV SCH (02:25)
[2021-11-25 07:41] LABS: Basophils # (A) 0.1 k/uL (0-0.2); Basophils % (A) 0 %; Eosinophils # (A) 0.2 k/uL (0-0.7); Eosinophils % (A) 2 %; HCT 46.8 % (39.0-53.0); HGB 15.2 gm/dL (13.0-17.5); Lymphocytes # (A) 3.5 k/uL (1.0-4.8); Lymphocytes % (A) 25 %; MCH 30.8 pg (25.0-35.0); MCHC 32.5 g/dL (31.0-37.0); MCV 94.7 fL (80.0-100.0); Mean Platelet Volume 7.2; Monocytes # (A) 1.1 k/uL (0-1.0); Monocytes % (A) 8 %; Neutrophils # (A) 8.8 k/uL (1.3-7.7); Neutrophils % (A) 63 %; Platelet Count 352 k/uL (150-450); RBC 4.94 m/uL (4.30-5.90); RDW 13.4 % (11.5-15.5); WBC 14.1 k/uL (3.8-10.6)
[2021-11-25 07:58] LABS: African American GFR (CKD) >90 (>60 ml/min/1.73 sqM); Anion Gap 3 mmol/L; Blood Urea Nitrogen 9 mg/dL (9-20); Calcium 9.4 mg/dL (8.4-10.2); Carbon Dioxide 28 mmol/L (22-30); Chloride 106 mmol/L (98-107); Glucose 102 mg/dL (74-99); Non-African American GFR(CKD) >90 (>60 ml/min/1.73 sqM); Sodium 137 mmol/L (137-145)
[2021-11-25] MEDS: METOPROLOL SUCCINATE (ER) 25 MG TAB.ER.24H PO SCH (08:22)
[2021-11-25] MEDS: ASPIRIN 81 MG PO SCH (08:22)
[2021-11-25] MEDS: PRASUGREL 10 MG TAB PO SCH (08:22)
--- NOTE | 2021-11-25 13:14 | P.PN ---
Subjective Progress Note Date: 11/25/21 HISTORY OF PRESENT ILLNESS: This is a 56-year-old male who underwent cardiac catheterization with Dr. Olivier with PCI to the LAD yesterday. Patient examined this morning at the bedside. He denies chest pain or pressure. Denies shortness of breath. He has been ambulating around the nursing unit multiple times today. Vital signs are stable. Echocardiogram completed revealing ejection fraction 3035% PHYSICAL EXAM: VITAL SIGNS: Reviewed. GENERAL: Well-developed in no acute distress. NECK: Supple. No JVD or thyromegaly LUNGS: Respirations even and unlabored. Lungs essentially clear to auscultation bilaterally. HEART: Regular rate and rhythm. S1 and S2 heard. EXTREMITIES: Normal range of motion. No clubbing or cyanosis. Peripheral pulses intact. 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 Possible discharge home tomorrow Further recommendations pending patient course Nurse practitioner note has been reviewed by physician. Signing provider agrees with the documented findings, assessment, and plan of care. Objective - Vital Signs Vital signs: Vital Signs Temp 97.8 F 11/25/21 12:00 Pulse 79 11/25/21 12:00 Resp 16 11/25/21 12:00 BP 105/65 11/25/21 12:00 Pulse Ox 98 11/25/21 12:00 Intake & Output 11/24/21 11/25/21 11/25/21 18:59 06:59 18:59 Intake Total 75 20 240 Output Total 525 Balance -450 20 240 Weight 90.4 kg Intake: IV 75 20 Invasive Line 1 10 Invasive Line 2 10 Sodium Chloride 0.9% 1, 75 000 ml In Empty Bag 1 bag @ 75 mls/hr IV .[id number] [facility] Rx#:[id number] Oral 240 Output: Urine 525 Other: Voiding Method Toilet Urinal # Voids 4 1 # Bowel Movements 0 - Labs CBC & Chem 7: 11/25/21 06:42 11/25/21 06:42 Labs: Abnormal Lab Results - Last 24 Hours (Table) 11/25/21 11/25/21 Range/Units 06:42 06:42 WBC 14.1 H (3.8-10.6) k/uL Neutrophils # 8.8 H (1.3-7.7) k/uL Monocytes # 1.1 H (0-1.0) k/uL Glucose 102 H (74-99) mg/dL
[2021-11-25] MEDS: ATORVASTATIN 80 MG TAB PO SCH (19:59)
--- NOTE | 2021-11-25 22:55 | P.PN ---
Subjective Progress Note Date: 11/25/21 Patient is a 56-year-old male with known history of smoking and osteoarthritis presents to ER with complaints of chest pain. Apparently patient was preparing dinner and suddenly passed out. EMS was called and patient was brought to the hospital. Patient has been having intermittent chest pain for the past 1 week. Patient felt like heartburn. Pain gets worse when he was shoveling and relieved with rest. Chest pain is mainly in the mid retrosternal. No associated nausea vomiting. No radiation. No associated headache or dizziness or lightheadedness. No diaphoresis. Patient denies any complaints of recent illnesses. No leg swelling. EKG showed ST elevated SC in the anterior leads and was taken to emergent cardiac catheterization. Patient underwent stent placement to LAD. Currently patient is being monitored in MICU. Denied any complaints of chest discomfort. Chest x-ray showed no active cardiopulmonary disease. No change. Laboratory showed WBC 18.4 hemoglobin 15.9 platelets 398-3.5 chloride 103 bicarb is 24 BUN 11 and creatinine 1.0 Troponin 0 0.299 11/25/2021 Patient is seen and evaluated in follow-up today status post stenting to the LAD with DR. Olivier following. Patient continues on dual anti-platelet and effient therapy. Patient denies any chest pain or shortness of breath. Patient is afebrile. Patient tolerating diet with no reports of nausea or vomiting noted. Patient WBC trending down and is 14 today and will repeat am labs. Patient has been walking multiple times in the halls and is extremely eager to go home. Cardiology following and will be observing overnight with possible discharge in 24 hours. Review of systems: Constitutional: No reports of fatigue, fever, or chills Cardiovascular: No reports of chest pain or palpitations Respiratory: No reports of shortness of breath or cough GI: No reports of nausea, vomiting, or diarrhea : No reports of dysuria or retention Neurovascular: No reports of weakness or numbness All medications have been reviewed Active Medications Al Hydroxide/Mg Hydroxide (Mag Hydrox/Al Hydrox/Simeth 30 Ml Cup) 30 ml PO Q4HR PRN PRN Reason: Heartburn Aspirin (Aspirin 81 Mg) 81 mg PO DAILY [facility] Last Admin: 11/25/21 08:22 Dose: 81 mg Documented by: Atorvastatin Calcium (Atorvastatin 80 Mg Tab) 80 mg PO HS [facility] Last Admin: 11/24/21 19:57 Dose: 80 mg Documented by: Atropine Sulfate (Atropine Sulfate 0.1 Mg/Ml 10ml Syringe) 0.5 mg IV ONCE PRN PRN Reason: Symptomatic Bradycardia Lisinopril (Lisinopril 2.5 Mg Tab) 2.5 mg PO DAILY [facility] Last Admin: 11/25/21 12:04 Dose: 2.5 mg Documented by: Metoprolol Succinate (Metoprolol Succinate (Er) 25 Mg Tab.Er.24h) 12.5 mg PO DAILY [facility] Last Admin: 11/25/21 08:22 Dose: 12.5 mg Documented by: Miscellaneous Information (Rx Info: Iv Contrast Was Given 1 Each Misc) 1 each MISCELLANE DAILY PRN PRN Reason: Per Protocol Stop: 11/26/21 02:06 Nitroglycerin (Nitroglycerin Sl Tabs 0.4 Mg Tab) 0.4 mg SUBLINGUAL Q5M PRN PRN Reason: Chest Pain Prasugrel (Prasugrel 10 Mg Tab) 10 mg PO DAILY [facility]; Protocol Last Admin: 11/25/21 08:22 Dose: 10 mg Documented by: Zolpidem Tartrate (Zolpidem 5 Mg Tab) 5 mg PO HS PRN PRN Reason: Insomnia PHYSICAL EXAMINATION: Patient is sitting up in the chair comfortably, no acute distress, awake alert and oriented.. HEENT: Normocephalic. Neck is supple. Pupils reactive. Nostrils clear. Oral cavity is moist. Neck reveals no JVD, carotid bruits, or thyromegaly. CHEST EXAMINATION: Trachea is central. Symmetrical expansion. Lung saleem clear to auscultation and percussion. CARDIAC: Normal S1, S2 with no gallops. No murmurs ABDOMEN: Soft. Bowel sounds normal. No organomegaly. No abdominal bruits. Extremities: reveal no edema. No clubbing or cyanosis Neurologically awake, alert, oriented x3 with well-coordinated movements. No focal deficits noted Skin: No rash or skin lesions. Psychiatric: Cooperative. Non-suicidal Musculoskeletal: No joint swelling or deformity. Normal range of motion. Assessment: Acute anterior wall SC status post stent placement to LAD. History of smoking and cutting down to 2 cigarettes/day. Ischemic cardiomyopathy with an EF of 30-35% Family history of coronary artery disease in his father.. Leukocytosis likely reactive. trending down and will repeat labs DVT prophylaxis. GI prophylaxis Full code Plan: Patient is status post cardiac catheterization and stent placement to LAD. Patient will be continued dual antiplatelet therapy with aspirin and effient. Continue with statins and metoprolol.. Telemetry monitoring. 2D echocardiogram shows an EF of 30-35%. Cardiology is on board and would like to observe overnight with possible discharge in 24 hours. Smoking cessation was again stressed. Encouraged risk factor modifications and lifestyle changes. Again, once cleared by cardiology, patient will be discharged with close outpatient follow up. Patient also reports to not routinely following with pcp and encouraged the patient to follow up with him on discharge and discuss medication changes and patient verbalized understanding. Repeat am labs ordered. Objective - Vital Signs Vital signs: Vital Signs Temp 97.9 F 11/25/21 04:00 Pulse 95 11/25/21 04:00 Resp 16 11/25/21 04:00 BP 116/78 11/25/21 04:00 Pulse Ox 95 11/25/21 04:00 Intake & Output 11/24/21 11/25/21 11/25/21 18:59 06:59 18:59 Intake Total 75 20 240 Output Total 525 Balance -450 20 240 Weight 90.4 kg Intake: IV 75 20 Invasive Line 1 10 Invasive Line 2 10 Sodium Chloride 0.9% 1, 75 000 ml In Empty Bag 1 bag @ 75 mls/hr IV .[id number] [facility] Rx#:[id number] Oral 240 Output: Urine 525 Other: Voiding Method Toilet Urinal # Voids 4 1 - Labs CBC & Chem 7: 11/25/21 06:42 11/25/21 06:42 Labs: Abnormal Lab Results - Last 24 Hours (Table) 11/25/21 11/25/21 Range/Units 06:42 06:42 WBC 14.1 H (3.8-10.6) k/uL Neutrophils # 8.8 H (1.3-7.7) k/uL Monocytes # 1.1 H (0-1.0) k/uL Glucose 102 H (74-99) mg/dL
[2021-11-26 08:46] LABS: African American GFR (CKD) >90 (>60 ml/min/1.73 sqM); Anion Gap 7 mmol/L; Blood Urea Nitrogen 11 mg/dL (9-20); Calcium 9.5 mg/dL (8.4-10.2); Carbon Dioxide 25 mmol/L (22-30); Chloride 106 mmol/L (98-107); Glucose 166 mg/dL (74-99); Non-African American GFR(CKD) >90 (>60 ml/min/1.73 sqM); Potassium 3.9 mmol/L (3.5-5.1); Sodium 138 mmol/L (137-145)
[2021-11-26 08:48] LABS: Basophils # (A) 0.1 k/uL (0-0.2); Basophils % (A) 1 %; Eosinophils # (A) 0.4 k/uL (0-0.7); Eosinophils % (A) 4 %; HCT 45.6 % (39.0-53.0); Lymphocytes # (A) 2.6 k/uL (1.0-4.8); Lymphocytes % (A) 23 %; MCH 31.6 pg (25.0-35.0); MCHC 32.9 g/dL (31.0-37.0); Mean Platelet Volume 7.3; Monocytes # (A) 0.7 k/uL (0-1.0); Monocytes % (A) 6 %; Neutrophils # (A) 7.6 k/uL (1.3-7.7); Neutrophils % (A) 66 %; Platelet Count 352 k/uL (150-450); RBC 4.75 m/uL (4.30-5.90); RDW 13.3 % (11.5-15.5); WBC 11.5 k/uL (3.8-10.6)
[2021-11-26 09:26] VITALS: PULSE 82; RESP 17
[2021-11-26] MEDS: PRASUGREL 10 MG TAB PO SCH (09:31)
[2021-11-26] MEDS: ASPIRIN 81 MG PO SCH (09:31)
[2021-11-26] MEDS: METOPROLOL SUCCINATE (ER) 25 MG TAB.ER.24H PO SCH (09:31)
--- NOTE | 2021-11-26 10:35 | P.PN ---
Subjective Progress Note Date: 11/26/21 HISTORY OF PRESENT ILLNESS: This is a 56-year-old male who was admitted as a STEMI and underwent cardiac catheterization with Dr. Olivier resulting in successful PCI to the LAD 11/24/21. Patient examined at bedside this morning. He was sitting up in the chair and reports overall feeling "fantastic.". He has been ambulatory in room and up and down the halls and is doing well. Patient denies having any chest pain, palpitations, shortness of breath, dizziness, lightheadedness, pa in/swelling/tenderness at right groin cardiac catheterization site, and denies experiencing any numbness/tingling/weakness in his right leg. Vital signs and labs stable. PHYSICAL EXAM: VITAL SIGNS: Reviewed. GENERAL: Well-developed in no acute distress. NECK: Supple. No JVD or thyromegaly LUNGS: Respirations even and unlabored. Lungs essentially clear to auscultation bilaterally. HEART: Regular rate and rhythm. S1 and S2 heard. No murmur, gallop, or rub. EXTREMITIES: Normal range of motion. No clubbing or cyanosis. Peripheral pulses intact. No lower extremity edema ASSESSMENT: Anterior STEMI, status post cardiac catheter physician with PCI to the LAD Severe residual disease involving the RCA Ischemic cardiomyopathy, EF 30% Nicotine dependence PLAN: Continued with dual antiplatelet therapy with aspirin and Effient Continue high intensity statin Continue metoprolol 12.5 mg daily and lisinopril 2.5 mg daily add on Aldactone Patient cleared from cardiac standpoint for discharge home, recommend following up in office in 1 week as patient will need to schedule cardiac cath for stenting of RCA on outpatient basis. Nurse practitioner note has been reviewed by physician. Signing provider agrees with the documented findings, assessment, and plan of care. Objective - Vital Signs Vital signs: Vital Signs Temp 98.0 F 11/26/21 08:00 Pulse 82 11/26/21 08:00 Resp 17 11/26/21 08:00 BP 113/74 11/26/21 08:00 Pulse Ox 98 11/26/21 08:00 Intake & Output 11/25/21 11/26/21 11/26/21 18:59 06:59 18:59 Intake Total 480 Balance 480 Weight 80.8 kg Intake: Oral 480 Other: Voiding Method Toilet Urinal # Voids 1 # Bowel Movements 0 - Labs CBC & Chem 7: 01/29/22 07:50 11/26/21 07:50 Labs: Abnormal Lab Results - Last 24 Hours (Table) 11/26/21 11/26/21 Range/Units 07:50 07:50 WBC 11.5 H (3.8-10.6) k/uL Glucose 166 H (74-99) mg/dL
[2021-11-26 14:40] VITALS: BP 111/66; TEMP 98.1
[2021-11-27] MEDS ORDERED: SPIRONOLACTONE 25 MG TAB PO SCH (09:00)
== END 2021-11-26 15:13 | disposition home or self-care (01) | DRG 247 ==
LOC: EC 00:09 → 2SICU 00:42 → EC 00:43 → 2SICU 02:26 → 3SCARD 18:24
PROVIDERS: ADMIT Hospitalist; ATTEND Hospitalist
DX: I21.09 ST elevation (STEMI) myocardial infarction involving other coronary artery of anterior wall (principal); D72.829 Elevated white blood cell count, unspecified; I25.5 Ischemic cardiomyopathy; I10 Essential (primary) hypertension; I25.10 Atherosclerotic heart disease of native coronary artery without angina pectoris; E78.00 Pure hypercholesterolemia, unspecified; M19.90 Unspecified osteoarthritis, unspecified site; F17.210 Nicotine dependence, cigarettes, uncomplicated; Z71.6 Tobacco abuse counseling; Z79.899 Other long term (current) drug therapy; Z87.39 Personal history of other diseases of the musculoskeletal system and connective tissue; Z82.49 Family history of ischemic heart disease and other diseases of the circulatory system
CPT/HCPCS: 36415; 71045; 80048; 80053; 84484; 85025; 85610; 85730; 93005; 93306; 93458

== ENCOUNTER 2021-12-07 07:33 | Day surgery (SDC) | payer MEDICARE, BC ==
[~2021-12-07 07:33] MED LIST changes: +ALPRAZolam 0.25 MG TAB PO PRN; +ALPRAZolam 0.5 MG TAB PO PRN; +ASPIRIN 325 MG TAB PO STA; +ATORVASTATIN 80 MG TAB PO STA; -DEXAMETHASONE SOD PHOSPHATE 10 MG/ML 1 ML VIAL IV ONE; +HEPARIN SODIUM,PORCINE 10,000 UNIT in SODIUM CHLORIDE 0.9% 1,000 ML IRRIGATION PRN; +HEPARIN SODIUM,PORCINE 2,500 UNIT in SODIUM CHLORIDE 0.9% 250 ML IRRIGATION PRN; -HYDROmorphone 0.5 MG/0.5 ML SYRINGE IVP PRN; -LACTATED RINGERS 1,000 ML IV SCH; -LIDOCAINE 1% 20 ML VIAL (10MG/ML) FOR IV START INTRADERMA PRN; -MIDAZOLAM 2 MG/2 ML VIAL IV PRN; +NITROGLYCERIN SL TABS 0.4 MG TAB SUBLINGUAL PRN; -ONDANSETRON 4 MG/2 ML VIAL IVP ONE; -SCOPOLAMINE 1.5MG/72HR PATCH TRANSDERM ONE; -ceFAZolin 2 GM in SODIUM CHLORIDE 0.9% 100 ML IVPB ONE; -fentaNYL (PF) 50 MCG/ML 2 ML AMP IVP PRN
[2021-12-07] MEDS: SODIUM CHLORIDE 0.9% 1,000 ML in EMPTY BAG 1 BAG IV SCH (07:56)
[2021-12-07] MEDS ORDERED: MIDAZOLAM 2 MG/2 ML VIAL IV ONE (09:59)
[2021-12-07] MEDS ORDERED: LIDOCAINE 1% INJ 10MG/ML (20 ML MDV) SQ ONE (10:01)
[2021-12-07] MEDS ORDERED: fentaNYL (PF) 50 MCG/ML 2 ML AMP IV ONE (10:02)
[2021-12-07] MEDS ORDERED: VERAPAMIL SYRINGE (5 MG/10 ML) INTRAARTER ONE (10:02)
[2021-12-07] MEDS ORDERED: HEPARIN SODIUM 1,000 UN/ML (10ML VL) IV ONE (10:04)
[2021-12-07] MEDS ORDERED: NITROGLYCERIN 1000MCG/10ML SYRINGE INTRACORON ONE (10:09)
[2021-12-07] MEDS ORDERED: IOPAMIDOL-370 125ML BTL INJ ONE (10:20)
[2021-12-07] MEDS ORDERED: NITROGLYCERIN SL TABS 0.4 MG TAB SUBLINGUAL PRN ×2 (10:22→10:23)
[2021-12-07] MEDS ORDERED: ZOLPIDEM 5 MG TAB PO PRN (10:23)
[2021-12-07] MEDS ORDERED: RX INFO: IV CONTRAST WAS GIVEN 1 EACH MISC MISCELLANE PRN (10:23)
[2021-12-07] MEDS ORDERED: MAG HYDROX/AL HYDROX/SIMETH 30 ML CUP PO PRN (10:23)
[2021-12-07] MEDS ORDERED: ATROPINE SULFATE 0.1 MG/ML 10ML SYRINGE IV PRN (10:23)
[2021-12-07] MEDS ORDERED: SODIUM CHLORIDE 0.9% 1,000 ML in EMPTY BAG 1 BAG IV SCH (10:30)
--- NOTE | 2021-12-07 10:30 | P.PCN ---
Date of Procedure: 12/07/21 Operative Findings: PERCUTANEOUS CORONARY INTERVENTION Performing physician Andrei Olivier M.D. Procedure Performed: 1. Successful stenting of the distal right coronary artery using 3.5 x 23 mm Xience drug-eluting stent with an excellent angiographic results. Indication: This is a pleasant 56-year-old gentleman with coronary artery disease will presented to the hospital a few weeks ago with STEMI. He underwent successful stenting of the left anterior descending artery. He was found to have severe disease involving the right coronary artery and the severe for PCI of the RCA Approach: Right radial artery Complications: None Level of Sedation: Moderate with a sedation length of 17 minutes Procedure Discussion: After obtaining an informed consent the patient was brought to the cardiac denture laboratory technician. The right radial artery was cannulated using micropuncture technique, the micropuncture wire passed easily then I placed a 6-Kosovan sheath. I gave the patient 2 mg of verapamil IA and 6000 use of heparin IV. I did engage the RCA using JR4 guiding catheter. Wire the right coronary artery using a run-through wire. After that I did direct stenting of the lesion in the distal right coronary artery using 3.5 x 23 mm stent where the stent was positioned under fluoroscopy guidance and deployed under 12 bimal for 20 seconds. I posterity the stent using 3.5 mm NC balloon which was inflated under 16 bimal for 20 seconds. The following angiogram showed an excellent angiographic results The procedure was completed without any complication Postprocedure Management: 1. Dual antiplatelet therapy 2. Aggressive cholesterol control 3. Follow-up with the patient
[2021-12-07] MEDS ORDERED: NON FORMULARY DRUG (Cranberry Fruit Extract [Cranberry] 500 MG Tablet) PO SCH (12:00)
[2021-12-07 14:32] VITALS: BMI 25.2
[2021-12-07] MEDS ORDERED: MULTIVITAMINS, THERA 1 EACH TAB PO SCH (17:00)
[2021-12-07] MEDS ORDERED: NON FORMULARY DRUG (Ubidecarenone [Co Q-10] 100 MG Capsule) PO SCH (21:00)
[2021-12-08] MEDS: SODIUM CHLORIDE 0.9% 1,000 ML in EMPTY BAG 1 BAG IV SCH (00:20)
[2021-12-08 08:40] LABS: African American GFR (CKD) >90 (>60 ml/min/1.73 sqM); Non-African American GFR(CKD) >90 (>60 ml/min/1.73 sqM)
[2021-12-08 08:46] VITALS: BP 133/87; PULSE 72; RESP 18; TEMP 97.9
[2021-12-08] MEDS ORDERED: METOPROLOL SUCCINATE (ER) 25 MG TAB.ER.24H PO SCH (09:00)
[2021-12-08] MEDS ORDERED: SPIRONOLACTONE 25 MG TAB PO SCH (09:00)
[2021-12-08] MEDS ORDERED: PRASUGREL 10 MG TAB PO SCH (09:00)
[2021-12-08] MEDS ORDERED: ASPIRIN 81 MG PO SCH (09:00)
--- NOTE | 2021-12-08 10:13 | P.DS ---
Providers Date of admission: December 07 Attending physician: Andrei Olivier Consults: 12/07/21 10:23 Consult Physician Routine Consulting Provider: [facility] Consult Reason/Comments: Post Interventional patient Do you want consulting provider notified?: Already Contacted Primary care physician: Yessica Davila [facility] Course: This is a 56-year-old gentleman who was admitted to the hospital yesterday and underwent successful stenting of the right coronary artery. He was seen this morning. He is asymptomatic. The right radial site soft and nontender. The patient is going to be discharged on dual antiplatelet therapy and I'll follow-up with the patient in a week in the office Plan - Discharge Summary Discharge Rx Participant: Yes New Discharge Prescriptions: Continue Ubidecarenone [Co Q-10] 100 mg PO BID Multivit-Min/FA/Lycopen/Lutein [Centrum Silver Tablet] 1 tab PO DAILY@1700 Cranberry Fruit Extract [Cranberry] 500 mg PO DAILY@1200 Prasugrel [Effient] 10 mg PO DAILY #90 tab Nitroglycerin Sl Tabs [Nitrostat] 0.4 mg SUBLINGUAL Q5M PRN #100 tab PRN Reason: Chest Pain Spironolactone [Aldactone] 25 mg PO DAILY 30 Days #30 tab Aspirin 81 mg PO DAILY #90 tab Atorvastatin [Lipitor] 80 mg PO HS #90 tab Metoprolol Succinate (ER) [Toprol XL] 12.5 mg PO DAILY #90 tab lisinopriL [Zestril] 2.5 mg PO DAILY #90 tab Discharge Medication List Multivit-Min/FA/Lycopen/Lutein [Centrum Silver Tablet] 1 tab PO DAILY@1700 07/27/17 [History] Ubidecarenone [Co Q-10] 100 mg PO BID 07/27/17 [History] Cranberry Fruit Extract [Cranberry] 500 mg PO DAILY@1200 11/24/21 [History] Aspirin 81 mg PO DAILY #90 tab 11/25/21 [Rx] Atorvastatin [Lipitor] 80 mg PO HS #90 tab 11/25/21 [Rx] Metoprolol Succinate (ER) [Toprol XL] 12.5 mg PO DAILY #90 tab 11/25/21 [Rx] Nitroglycerin Sl Tabs [Nitrostat] 0.4 mg SUBLINGUAL Q5M PRN #100 tab 11/25/21 [Rx] Prasugrel [Effient] 10 mg PO DAILY #90 tab 11/25/21 [Rx] lisinopriL [Zestril] 2.5 mg PO DAILY #90 tab 11/25/21 [Rx] Spironolactone [Aldactone] 25 mg PO DAILY 30 Days #30 tab 11/26/21 [Rx] Follow up Appointment(s)/Referral(s): Andrei Olivier MD [STAFF PHYSICIAN] - 12/13/21 10:45 am Patient Instructions/Handouts: Left Heart Catheterization (DC), After Radial Heart Catheterization (GEN), Procedural Sedation (ED)
[2021-12-08] MEDS ORDERED: ATORVASTATIN 80 MG TAB PO SCH (21:00)
== END 2021-12-08 11:04 | disposition home or self-care (01) ==
LOC: CATHCVL 07:33 → 6NMEDSUR 11:14 → CATHCVL 12-08 11:04
PROVIDERS: ATTEND Internal Medicine Interventional Cardiology
DX: I25.10 Atherosclerotic heart disease of native coronary artery without angina pectoris (principal); Z20.822 Contact with and (suspected) exposure to COVID-19
CPT/HCPCS: 92928; 87635; J2250; J2001; J3010; J1644; Q9967; 82565; 94760